=== PATIENT | female | born 1995 | race Caucasian/White ===

== ENCOUNTER 2016-06-29 22:44 | Emergency (ER) | payer SELFPAY ==
[~2016-06-29] VITALS: Ht 154.9 cm; Wt 75.0 kg
[2016-06-29 22:47] VITALS: BP 133/71; PULSE 78; RESP 16; TEMP 98.4; O2SAT 100
[2016-06-30 00:32] VITALS: BP 125/74; PULSE 65; RESP 18; O2SAT 100
--- NOTE | 2016-06-30 01:53 | RADRPT ---
EXAM DATE/TIME: 06/30/2016 01:35 [facility] COMPARISON: No previous studies available for comparison. INDICATIONS : Trauma; hit head on wall 4 days ago. Complains of cephalgia. RADIATION DOSE: 56.35 CTDIvol (mGy) MEDICAL HISTORY : None SURGICAL HISTORY : None. ENCOUNTER: Initial ACUITY: 4 - 6 days PAIN SCALE: 3/10 LOCATION: cranial TECHNIQUE: Multiple contiguous axial images were obtained of the head. Using automated exposure control and adj ustment of the mA and/or kV according to patient size, radiation dose was kept as low as reasonably a chievable to obtain optimal diagnostic quality images. FINDINGS: CEREBRUM: The ventricles are normal for age. No evidence of midline shift, mass lesion, hemorrhage or acute in farction. No extra-axial fluid collections are seen. POSTERIOR FOSSA: The cerebellum and brainstem are intact. The 4th ventricle is midline. The cerebellopontine angle i s unremarkable. EXTRACRANIAL: The visualized portion of the orbits is intact. SKULL: The calvaria is intact. No evidence of skull fracture. CONCLUSION: Normal examination. Hair Hernández MD on June 30, 2016 at 1:50 Board Certified Radiologist. This report was verified electronically.
--- NOTE | 2016-06-30 01:54 | RADRPT ---
EXAM DATE/TIME: 06/30/2016 01:35 [facility] COMPARISON: No previous studies available for comparison. INDICATIONS : Trauma; hit head on wall 4 days ago. Complains of cephalgia. RADIATION DOSE: 32.17 CTDIvol (mGy) MEDICAL HISTORY : None SURGICAL HISTORY : None. ENCOUNTER: Initial ACUITY: 4 - 6 days PAIN SCALE: 1/10 LOCATION: neck TECHNIQUE: Volumetric scanning of the cervical spine was performed. Multiplanar reconstructions in the sagittal, coronal and oblique axial planes were performed. Using automated exposure control and adjustment o f the mA and/or kV according to patient size, radiation dose was kept as low as reasonably achievable to obtain optimal diagnostic quality images. FINDINGS: The alignment is normal. There is no evidence of cervical spine fracture. No bony canal or foraminal stenosis is identified. There is no evidence of paraspinal hematoma. CONCLUSION: No acute bony injury in the cervical spine. Hair Hernández MD on June 30, 2016 at 1:52 Board Certified Radiologist. This report was verified electronically.
[2016-06-30] MEDS ORDERED: ACETAMINOPHEN/HYDROcodone 325 MG/5 MG TAB PO ONE (02:15)
--- NOTE | 2016-06-30 02:33 | PD ---
HPI Chief Complaint: Headache Time Seen by Provider: 00:30 Travel History International Travel<30 days: No Contact w/Intl Traveler<30days: No Traveled to known affect area: No History of Present Illness HPI The patient is a 21 year old female who presents to the [facility] emergency department with a history of a headache along the left side of her head that began when she was reportedly falling around and struck the left side of her head on a wall. She reports that she was not trying to harm herself. She reports that she was not angry when it occurred. She reports that she did fall over and saw white spots. She reports that since then she has been trying to control the pain with BC patter or ibuprofen. She denies icing the area. She reports that she does have a small lump at the site. The patient denies any recent fevers cough, congestion, neck pain, chest pain, shortness of breath, abdominal pain, vomiting, diarrhea, urinary symptoms, or other neurologic symptoms. LMP: June 09, 2016 [facility] Past Medical History Narrative Medical The patient's past medical history is reportedly significant for asthma. Asthma: Yes Diminished Hearing: No Immunizations Current: Yes ?: Not LMP: 06/05/16 Past Surgical History Narrative Surgical The patient's past surgical history is reportedly none. Surgical History: No Previous Surgery Social History Alcohol Use: Yes (OCC) Tobacco Use: Yes (4 CIGG) Substance Use: No Allergies-Medications (Allergen,Severity, Reaction): Coded Allergies: Penicillin (Verified Allergy, Mild, MOM IS ALLERGIC, CHILD HAS NOT HAD YET , 06/29/16) Reported Meds & Prescriptions Reported Meds & Active Scripts Active No Active Prescriptions or Reported Medications Narrative Medication Albuterol rescue inhaler when necessary. Review of Systems General / Constitutional: No: Fever Eyes: No: Visual changes HENT: Positive: Headaches, No: Rhinorrhea, Congestion, Neck Stiffness, Neck Pain Cardiovascular: No: Chest Pain or Discomfort Respiratory: No: Shortness of Breath Gastrointestinal: No: Nausea, Vomiting, Diarrhea, Abdominal Pain Genitourinary: No: Dysuria Musculoskeletal: No: Pain Skin: No Rash Neurologic: Positive: Headache, No: Weakness, Focal Abnormalities, Change in Mentation, Slurred Speech, Paresthesia, Sensory Disturbance Psychiatric: No: Depression Endocrine: No: Polydipsia Hematologic/Lymphatic: No: Easy Bruising Physical Exam Narrative General: The patient is well-developed well-nourished female in no acute distress. Head and Neck exam: Head is normocephalic, tenderness on palpation of the left parietal scalp was noted. There is no step-off or crepitus. There is a small hematoma noted. Eyes: EOMI, pupils are equal round and reactive to light. Nose: Midline septum with pink mucous membranes Mouth: Dentition unremarkable. Moist mucus membranes. Posterior oropharynx is not erythematous. No tonsillar hypertrophy. Uvula midline. Airway patent. Neck: No palpable lymphadenopathy. No nuchal rigidity. No thyromegaly. No spinous process tenderness to palpation, no step-off, no crepitus, no erythema or ecchymosis. Cardiovascular: Regular rate and rhythm without murmurs, gallops, or rubs. Lungs: Clear to auscultation bilaterally. No wheezes, rhonchi, or rales. Abdomen: Soft, without tenderness to palpation in all 4 quadrants of the abdomen. No guarding, rebound, or rigidity. Normal bowel sounds are audible. Extremities: No clubbing, cyanosis, or edema. 2+ pulses in all 4 extremities. Back: No spinous process tenderness to palpation. No costovertebral angle tenderness to palpation. Neurologic Exam: Cranial nerves 2-12 were intact on exam. Strength is 5/5 in all 4 extremities. No sensory deficits noted. Skin Exam: No rash noted. Intact skin that is warm and dry. Data Data Last Documented VS Vital Signs Date Time Temp Pulse Resp B/P Pulse Ox O2 Delivery O2 Flow Rate FiO2 06/30/16 00:32 65 18 125/74 100 Room Air 06/29/16 22:[address] Brain W/O Iv Contrast(Rout) (06/30/16 00:31) Ct Cerv Spine W/O Contrast (06/30/16 00:31) Ed Urine Pregnancytest Poc (06/30/16 00:31) Acetamin-Hydrocod 325-5 Mg ([place] 5-325 (06/30/16 02:15) MDM Medical Decision Making Medical Screen Exam Complete: Yes Emergency Medical Condition: Yes Medical Record Reviewed: Yes Interpretation(s) Last Impressions Head CT 06/30/16 0031 Signed Impressions: Service Date/Time: Thursday, June 30, 2016 01:35 - CONCLUSION: Normal examination. Hair Hernández MD Cervical Spine CT 06/30/16 0031 Signed Impressions: Service Date/Time: Thursday, June 30, 2016 01:35 - CONCLUSION: No acute bony injury in the cervical spine. Hair Hernández MD Differential Diagnosis Intracranial hemorrhage, versus concussion, versus skull fracture, versus cervical spine trauma Narrative Course During the course of the patients emergency department visit, the patients history, examination, and differential diagnosis were reviewed with the patient. The patient had a bedside test that was done and reportedly negative. A CT scan of the head and neck was ordered. The patient was provided Lortab 5 mg by mouth 1 for pain. The patient reports that her mom will be driving her home. Radiology studies were reviewed and remarkable for a CT scan of the brain that was read as negative by the reading radiologist. CT scan of the C-spine showed no acute abnormality. The patient was instructed to take ibuprofen which she can alternate with Tylenol as needed for discomfort as written on the package. The patient was instructed to ice area of swelling for 10-15 minutes 3-4 times per day. The patient is resting comfortably and feels better, is alert and in no distress. The patients results and examination findings were discussed with the patient. The repeat examination is unremarkable and benign. The history, exam, diagnostic testing, and current condition do not suggest any significant pathology to warrant further testing, continued ED treatment, admission, or surgical evaluation at this point. The vital signs have been stable. The patient does not have uncontrollable pain, intractable vomiting, or other significant symptoms. The patient's condition is stable and appropriate for discharge. The patient will pursue further outpatient evaluation with a primary care physician or other designated or consulting physician as indicated in the discharge instructions. The patient expressed understanding and was agreeable with this plan. Diagnosis Primary Impression: Head injury due to trauma Qualified Code: S09.90XA - Head injury due to trauma, initial encounter Referrals: Primary Care Physician 3 days Patient Instructions: General Instructions, Head Injury (ED) Med/Other Pt SpecificInfo: No Change to Meds Scripts No Active Prescriptions or Reported Meds Disposition: 01 DISCHARGE HOME Condition: Stable Lee Ann Rhoades MD Jun 30, 2016 02:33
[2016-06-30 02:58] VITALS: BP 112/61; PULSE 71; RESP 18; TEMP 98.4; O2SAT 100
== END 2016-06-30 03:04 | disposition home or self-care (01) ==
LOC: NEPE 22:44
DX: S09.90XA Unspecified injury of head, initial encounter (principal); W18.30XA Fall on same level, unspecified, initial encounter; Z72.0 Tobacco use
CPT/HCPCS: 70450; 72125; 84703

== ENCOUNTER 2017-01-09 17:31 | Emergency (ER) | payer SELFPAY ==
[2017-01-09 17:35] VITALS: BP 133/68; PULSE 66; RESP 18; TEMP 98.3; O2SAT 99
[2017-01-09] MEDS ORDERED: IBUP-232 PO (18:28)
[2017-01-09] MEDS ORDERED: ROBA750T PO (18:28)
--- NOTE | 2017-01-09 18:28 | PD ---
HPI Chief Complaint: Musculoskeletal Complaint Time Seen by Provider: 18:15 Travel History International Travel<30 days: No Contact w/Intl Traveler<30days: No Traveled to known affect area: No History of Present Illness HPI 22-year-old female presents to the emergency room for evaluation of right sided thoracic back pain for the past 3 days. States she woke up with the pain and it has progressively been worsening. Patient denies trauma or injury. 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 Patient denies any trauma or injury to her neck or back. She has been taking ibuprofen without any relief in symptoms. Pain is worsened with range of motion of the upper extremities. Pain occasionally radiates to the right elbow. Denies paresthesias.. Denies fever, chills, abdominal pain, nausea, vomiting, cough, or congestion. Pain is not exacerbated with deep breathing. PFSH Past Medical History Asthma: Yes Diminished Hearing: No Immunizations Current: Yes ?: Not LMP: 1 WEEK Social History Alcohol Use: Yes (OCC) Tobacco Use: Yes Substance Use: No Allergies-Medications (Allergen,Severity, Reaction): Coded Allergies: Penicillin (Verified Allergy, Mild, MOM IS ALLERGIC, CHILD HAS NOT HAD YET , 01/09/17) Reported Meds & Prescriptions Reported Meds & Active Scripts Active Ibuprofen 600 Mg Tab 600 Mg PO Q8H PRN Robaxin (Methocarbamol) 750 Mg Tab 750 Mg PO Q8HR Review of Systems Except as stated in HPI: all other systems reviewed are Neg Physical Exam Narrative GENERAL: Well-nourished, well-developed female in no acute distress. Afebrile. Ambulatory. SKIN: Focused skin assessment warm/dry. No erythema or ecchymosis. HEAD: Normocephalic. EYES: No scleral icterus. No injection or drainage. NECK: Supple, trachea midline. No JVD or lymphadenopathy. No midline tenderness. Full range of motion. CARDIOVASCULAR: Regular rate and rhythm without murmurs, gallops, or rubs. RESPIRATORY: Breath sounds equal bilaterally. No accessory muscle use. GASTROINTESTINAL: Abdomen soft, non-tender, nondistended. No hepato- splenomegaly, or palpable masses. No guarding. Negative Torres sign. MUSCULOSKELETAL: No cyanosis, or edema. 2+ radial pulse. Radial, ulnar, and median nerves intact. Full range of motion of bilateral fractured studies. Strength 5/5 and equal in upper extremities. BACK: No CVA tenderness. No rash. No point tenderness on palpation of the spine. Tenderness to palpation of the right trapezius muscle. Data Data Last Documented VS Vital Signs Date Time Temp Pulse Resp B/P Pulse Ox O2 Delivery O2 Flow Rate FiO2 01/09/17 17:35 98.3 66 18 133/68 99 MDM Medical Decision Making Medical Screen Exam Complete: Yes Emergency Medical Condition: Yes Medical Record Reviewed: Yes Differential Diagnosis Thoracic back strain, pneumonia, muscle spasm Narrative Course 22-year-old female presents to the emergency room for evaluation of right sided upper back pain for the past 3 days. No trauma or injury. Patient does a lot of over the head lifting at work. Physical exam reveals moderate tenderness to palpation of the right trapezius muscle. Pain is worsened with range of motion of the upper extremities. Bilateral upper extremities are neurovascularly intact with full range of motion. No midline tenderness of the spine. This is trapezius muscle strain. No concern for abdominal referred pain or intrathoracic etiology. Patient discharged with prescriptions for ibuprofen and Robaxin and told to follow-up with a primary care physician or return for worsening symptoms. She understands and agrees to plan. Diagnosis Primary Impression: Muscle strain Referrals: Primary Care Physician Patient Instructions: General Instructions, Muscle Strain (ED) Additional Instructions: Rest and drink plenty of fluids. Take Robaxin as directed, as needed for pain. Take ibuprofen with food as directed, as needed for pain. Apply ice to the affected area for 20 minutes at a time, as needed for pain and swelling. Follow-up with a primary care physician. Return to the emergency room for worsening symptoms. Med/Other Pt SpecificInfo: Prescription(s) given Scripts Ibuprofen 600 Mg [id number] Mg PO Q8H PRN (PAIN) #21 TAB Ref 0 Prov:Harrison Kauffman MD 01/09/17 Methocarbamol (Robaxin)750 Mg [id number] Mg PO Q8HR #15 TAB Ref 0 Prov:Harrison Kaufmfan MD 01/09/17 Disposition: 01 DISCHARGE HOME Condition: Stable Margie Green Jan 09, 2017 18:28
== END 2017-01-09 18:40 | disposition home or self-care (01) ==
LOC: PHEFT 17:31
DX: S29.012A Strain of muscle and tendon of back wall of thorax, initial encounter (principal); Z72.0 Tobacco use; Z87.09 Personal history of other diseases of the respiratory system; X58.XXXA Exposure to other specified factors, initial encounter
CPT/HCPCS: 99283

== ENCOUNTER 2017-01-30 10:05 | Emergency (ER) | payer SELFPAY ==
[~2017-01-30] VITALS: Ht 154.9 cm; Wt 69.0 kg
[~2017-01-30 10:05] MED LIST: IBUP-232 PO; ROBA750T PO
[2017-01-30 10:06] VITALS: BP 139/85; PULSE 84; RESP 15; TEMP 98.2; O2SAT 98
--- NOTE | 2017-01-30 10:48 | PD ---
HPI Chief Complaint: Lump, Cyst, Hernia Time Seen by Provider: 10:40 Travel History International Travel<30 days: No Contact w/Intl Traveler<30days: No Traveled to known affect area: No History of Present Illness HPI 22-year-old Afro-[place] female presents for Department with left lower breast tenderness which is been intermittent and better with manual massage for the past 4 days. Patient denies fever, chills, shortness of breath, or other constitutional symptoms. She denies any erythema, drainage, or nipple discharge. Patient is currently on her menses 2 days. Patient denies previous history of similar symptoms. Patient is not breast-feeding. She denies any trauma to the region. She is allergic to penicillin. [facility] Past Medical History Asthma: Yes Diminished Hearing: No Immunizations Current: Yes ?: Not LMP: 01/28/17 Social History Alcohol Use: Yes ([facility]) Tobacco Use: Yes Substance Use: No Allergies-Medications (Allergen,Severity, Reaction): Coded Allergies: penicillin G (Unverified Allergy, Mild, MOM IS ALLERGIC, CHILD HAS NOT HAD YET, 01/30/17) Reported Meds & Prescriptions Reported Meds & Active Scripts Active Ibuprofen 600 Mg Tab 600 Mg PO Q8H PRN Review of Systems Except as stated in HPI: all other systems reviewed are Neg General / Constitutional: No: Fever, Chills Eyes: No: Visual changes HENT: No: Headaches Cardiovascular: No: Chest Pain or Discomfort Respiratory: No: Cough, Shortness of Breath, Wheezing Gastrointestinal: No: Abdominal Pain Genitourinary: Positive: Other (intermittent left breast tenderness. 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 GENERAL: Patient appears in acute distress. SKIN: Warm and dry. Normal color. Normal turgor. Left breast appears normal without significant swelling, erythema, or signs of infection. There is no large palpable breast mass. There is no lymphadenitis in the left axilla. There is no discoloration or dimpling. HEAD: Atraumatic. Normocephalic. EYES: Pupils equal and round. No scleral icterus. No injection or drainage. ENT: No nasal bleeding or discharge. Mucous membranes pink and moist. Pharynx is clear. NECK: Trachea midline. Supple without significant lymphadenopathy. CARDIOVASCULAR: Regular rate and rhythm. RESPIRATORY: No accessory muscle use. Clear to auscultation. Breath sounds equal bilaterally. MUSCULOSKELETAL: Extremities without clubbing, cyanosis, or edema. No obvious deformities. NEUROLOGICAL: Awake and alert. No obvious cranial nerve deficits. Motor grossly within normal limits. Five out of 5 muscle strength in the arms and legs. Normal speech. PSYCHIATRIC: Appropriate mood and affect; insight and judgment normal. Data Data Last Documented VS Vital Signs Date Time Temp Pulse Resp B/P Pulse Ox O2 Delivery O2 Flow Rate FiO2 01/30/17 10:06 98.2 84 15 139/85 98 MDM Medical Decision Making Medical Screen Exam Complete: Yes Emergency Medical Condition: No Differential Diagnosis Left breast tenderness on menses. Left breast mass. Possible early mastitis. Narrative Course Patient discussed with Dr. Prajapati feels this is not an emergent issue. Patient recommended to [facility] after her menses is completed. A medical screening exam was performed: At the time of evaluation the presenting medical condition was determined not to be of an emergent nature. The patient was given the option of receiving additional care, but declined. Patient was given options for additional community resources from which to obtain care. The Patient Has Been advised to seek medical attention for their presenting complaint. The patient has been advised to return to the ER at any time if an emergent condition develops. Condition: Stable Zeke Corrigan Jan 30, 2017 10:48
== END 2017-01-30 11:09 | disposition left against medical advice (07) ==
LOC: NEPD 10:05
DX: N64.4 Mastodynia (principal); J45.909 Unspecified asthma, uncomplicated
CPT/HCPCS: 99281

== ENCOUNTER 2017-03-31 15:36 | Emergency (ER) | payer SELFPAY ==
[~2017-03-31] VITALS: Ht 154.9 cm; Wt 71.0 kg
[~2017-03-31 15:36] MED LIST changes: -ROBA750T PO
[2017-03-31 15:41] VITALS: BP 116/58; PULSE 71; RESP 16; TEMP 98.5; O2SAT 100
--- NOTE | 2017-03-31 16:19 | PD ---
HPI Chief Complaint: ENT Complaint Time Seen by Provider: 16:04 Travel History International Travel<30 days: No Contact w/Intl Traveler<30days: No Traveled to known affect area: No History of Present Illness HPI Patient's complaining of right ear pain intermittently over the past week. Patient describes pain as sharp stabbing pain without radiation. Patient reports she tried cleaning her ear with no improvement of symptoms. Patient used an [id number] pain medication help some. Denies anything making it worse. Denies any fevers, change in hearing, nausea, vomiting, headache, change in vision, chest pain, shortness of breath, or known history of recurrent ear infections. History Past Medical Histgory Medical History: Denies Significant Hx Past Surgical History Surgical History: No Previous Surgery Social History Alcohol Use: Yes (OCC) Tobacco Use: Yes (1 ppd) Allergies-Medications (Allergen,Severity, Reaction): Coded Allergies: penicillin G (Unverified Allergy, Mild, MOM IS ALLERGIC, CHILD HAS NOT HAD YET, 03/31/17) Reported Meds & Prescriptions Reported Meds & Active Scripts Active No Active Prescriptions or Reported Medications Review of Systems Except as stated in HPI: all other systems reviewed are Neg Physical Exam Narrative GENERAL: Well-developed, overly nourished, in no acute distress, and non-ill appearing. SKIN: Focused skin assessment warm and dry. HEAD: Atraumatic. Normocephalic. EYES: Pupils equal and round. EOMI. No scleral icterus. No injection or drainage. ENT: No nasal bleeding or discharge. Mucous membranes pink and moist. Tympanic membranes pearly whitt bilaterally. No reproducible tenderness with tugging of the tragus or auricle. No tenderness to facial sinuses to palpation. No tenderness or erythematous to bilateral mastoid process. NECK: Trachea midline. No cervical lymphadenopathy. Supple. No nuclear rigidity. RESPIRATORY: No accessory muscle use. No respiratory distress. MUSCULOSKELETAL: No obvious deformities. No clubbing. No cyanosis. No edema. Full range of motion. NEUROLOGICAL: Awake and alert. No obvious cranial nerve deficits. Motor grossly within normal limits. Normal speech. PSYCHIATRIC: Appropriate mood and affect; insight and judgment normal. Data Data Last Documented VS Vital Signs Date Time Temp Pulse Resp B/P (MAP) Pulse Ox O2 Delivery O2 Flow Rate FiO2 03/31/17 15:41 98.5 71 16 116/58 (77) 100 MDM Medical Screen Exam Complete: Yes Emergency Medical Condition: No Narrative Course History and physical exam findings are not consistent with an emergent medical condition. She was given the option of receiving additional care, but has declined. Therefore the appropriate counseling recommendations were discussed with the patient and she was instructed to follow-up with her primary care physician as soon as possible for reevaluation. Patient was also informed of community resources from which she can obtain additional care. She is agreeable and verbalizes an understanding of the proposed plan. The patient states she will immediately return to the emergency department if her current complaints do not improve, new symptoms arise, or emergent condition develops. Patient ambulated out of the emergency department without difficulty. Primary Impression: Encounter for medical screening examination Scripts No Active Prescriptions or Reported Meds Disposition: [facility]-ED USE ONLY Condition: Stable Eliu Yang Mar 31, 2017 16:19
== END 2017-03-31 16:11 | disposition left against medical advice (07) ==
LOC: PHEFT 15:36
DX: H92.01 Otalgia, right ear (principal)
CPT/HCPCS: 99281